=== PATIENT | female | born 1965 | race Caucasian/White ===

== ENCOUNTER 2022-12-27 10:14 | Emergency (ER) | payer MEDICAID, OTHER ==
[~2022-12-27] VITALS: Ht 167.6 cm; Wt 58.9 kg
[2022-12-27 13:10] LABS: BASOPHILS % 0.4 % (0.0-2.0); EOSINOPHILS % 0.4 % (0.0-5.0); HEMATOCRIT. 30.8 % (36.0-48.0); HEMOGLOBIN. 10.2 g/dL (12.0-16.0); LYMPHOCYTES % 12.1 % (20.0-50.0); MEAN CORPUSCULAR HEMOGLOBIN 30.9 pg (28.0-32.0); MEAN CORPUSCULAR VOLUME 93.3 fL (81.0-99.0); MEAN PLATELET VOLUME 7.5 fl (7.4-10.4); MONOCYTES % 7.7 % (2.0-8.0); NEUTROPHILS % 79.4 % (40.0-76.0); PLATELET 451 x1000/uL (130-400); RED CELL DISTRIBUTION WIDTH 15.5 % (11.6-14.6)
[2022-12-27 13:19] LABS: CHLORIDE 104 mEq/L (98-107)
[2022-12-27 13:31] LABS: HCG SCREEN INDETERMINATE
[2022-12-27] MEDS ORDERED: TOPUD MT (14:13)
[2022-12-27] MEDS ORDERED: ACETAMINOPHEN 325MG TABLET PO ONE ×2 (17:15→23:00)
[2022-12-27] MEDS ORDERED: MORPHINE SULFATE 4 MG/ML CPJ (NOT FOR IM USE) IV STA (18:28)
[2022-12-27] MEDS ORDERED: SODIUM CHLORIDE 0.9% 1,000 ML IV ONE (18:30)
[2022-12-27] MEDS ORDERED: IOHEXOL-350 100 ML BOTTLE ONE (20:45)
[2022-12-27] MEDS ORDERED: IBUP-2029 MT (23:35)
[2022-12-28] VITALS: BP 130/69
== END 2022-12-28 01:08 | disposition home or self-care (01) ==
LOC: ER 11:13
DX: M79.10 Myalgia, unspecified site (principal); Z88.0 Allergy status to penicillin
CPT/HCPCS: 36415; 70450; 70486; 70498; 71046; 71260; 72125; 74177; 80053; 84702; 84703; 85025; 96361; 96374; 99285; J2270; J7030; Q9967